=== PATIENT | male | born 1980 | race Caucasian/White ===

== ENCOUNTER 2022-03-07 15:22 | Emergency (ER) | payer OTHER ==
[2022-03-07] MEDS ORDERED: Ketorolac 30 MG/ML SDV IVPUSH ONE (16:23)
[2022-03-07] MEDS ORDERED: Lactated Ringers 1,000 ML IV ONE (16:23)
[2022-03-07 18:13] LABS: CARBON DIOXIDE,CO2 28.4 mmol/L (21.0-32.0); POTASSIUM,K 3.8 mmol/L (3.5-5.1)
== END 2022-03-07 18:05 | disposition home or self-care (01) ==
LOC: MW.ED 15:22
DX: N20.0 Calculus of kidney (principal); Z79.899 Other long term (current) drug therapy
CPT/HCPCS: 36415; 74176; 80053; 81001; 85025; 96361; 96374; 99284; J1885; J7120